=== PATIENT | male | born 1940 | race Caucasian/White ===

== ENCOUNTER 2018-11-30 19:15 | Outpatient (CLI) | payer MEDICARE | END 2018-11-30 19:16 | disposition short-term general hospital (02) | LOC: EMS 19:15 | PROVIDERS: ATTEND Surgery | DX: R46.4 Slowness and poor responsiveness (principal); R41.0 Disorientation, unspecified | CPT/HCPCS: A0425; A0427 ==

== ENCOUNTER 2020-05-28 22:10 | Outpatient (CLI) | payer MEDICARE | END 2020-05-28 22:11 | disposition critical access hospital (66) | LOC: EMS 22:10 | PROVIDERS: ATTEND Surgery | DX: M54.5 Low back pain (principal) | CPT/HCPCS: A0425; A0429 ==

== ENCOUNTER 2020-05-28 22:47 | Emergency (ER) | payer MEDICARE ==
[2020-05-28] MEDS ORDERED: HYDROmorphone 1 MG/ML CARPUJECT IM STA (23:07)
--- NOTE | 2020-05-28 23:52 | ED Physician Documentation ---
PD HPI BACK PAIN - Stated complaint Stated Complaint: GLF, BACK PAIN - Chief complaint Chief Complaint: Trauma Ch/Bk - History obtained from History obtained from: Patient, EMS - Additional information Additional information: Patient is brought to the emergency department by EMS after [place]. [place] to feel very tired. He states that this happens to him occasionally, but that usually, he is able to get rest at home and feels better in the morning. Patient states that he had to walk several blocks to his home and that when he did while walking, he took a fall. He is not sure if he tripped or slipped, though he does note it was raining and the ground was wet. Patient has chronic low back pain and states that after the fall, his pain was much worse and could not get up. Patiently in the rain for approximately 2 hours before being discovered and EMS was then called. The pat ient denies chest pain or shortness of breath. He states he did not hit his head or lose consciousness. No nausea, vomiting, or abdominal pain. Medics have noted only abrasion on patient's right knee and right hand. Patient is on an anticoagulant of some sort he states, but he is not sure what the name is. He lives at home with his . No other complaints at this time. Review of Systems Ten Systems: 10 systems reviewed and negative Constitutional: reports: Reviewed and negative Eyes: reports: Reviewed and negative Ears: reports: Reviewed and negative Nose: reports: Reviewed and negative Throat: reports: Reviewed and negative Cardiac: reports: Reviewed and negative Respiratory: reports: Reviewed and negative GI: reports: Reviewed and negative : reports: Reviewed and negative Skin: reports: Reviewed and negative Musculoskeletal: reports: Back pain. denies: Neck pain, Extremity pain Neurologic: reports: Reviewed and negative. denies: Headache, Head injury, LOC Psychiatric: reports: Reviewed and negative Endocrine: reports: Reviewed and negative Immunocompromised: reports: Reviewed and negative PD PAST MEDICAL HISTORY - Present Medications Home Medications: Ambulatory Orders Medication Instructions Recorded Confirmed Acetaminophen [Aphen] 325 mg PO PRN 05/28/20 Apixaban [Eliquis] 2.5 mg PO BID 05/28/20 05/28/20 Atorvastatin Calcium [Lipitor] 80 mg PO HS 05/28/20 05/28/20 Famotidine [Acid-Pep] 20 mg PO DAILY 05/28/20 05/28/20 Furosemide [Lasix] 20 mg PO DAILY 05/28/20 05/28/20 HYDROcod/ACETAM 5/325 [[place] 5/325] 1 - 2 ea PO Q6H PRN #15 tablet 05/28/20 Levetiracetam [Keppra Xr] 500 mg PO BID 05/28/20 05/28/20 Losartan [Cozaar] 50 mg PO DAILY 05/28/20 05/28/20 Metoprolol Succinate [Toprol Xl] 100 mg PO DAILY PM 05/28/20 05/28/20 Potassium Chloride 20 meq PO DAILY 05/28/20 05/28/20 amLODIPine [Norvasc] 10 mg PO DAILY 05/28/20 05/28/20 - Allergies Allergies/Adverse Reactions: Allergies Allergy/AdvReac Type Severity Reaction Status Date / Time No Known Drug Allergies Allergy Verified 05/28/20 23:19 PD ED PE NORMAL - Vitals Vital signs reviewed: Yes - General General: Alert and oriented X 3, No acute distress, Well developed/nourished - HEENT HEENT: Atraumatic, PERRL, EOMI, Moist mucous membranes - Neck Neck: Supple, no meningeal sign, No bony TTP - Cardiac Cardiac: RRR, No murmur, Strong equal pulses - Respiratory Respiratory: No respiratory distress, Clear bilaterally - Abdomen Abdomen: Soft, Non tender, Non distended - Back Back: Other (There is no specific tenderness over the patient's back, though he is very uncomfortable during the process of rolling him over to check his back. He indicates the lumbar region as being the general area of his pain when I palpate, though he denies tenderness.) - Derm Derm: Normal color, Warm and dry, No rash, Other (Small abrasion to the right hand dorsum and right knee.) - Extremities Extremities: No deformity, No edema, No calf tenderness / cord - Neuro Neuro: Alert and oriented X 3, narcotics agent 2-12 intact, No motor deficit, No sensory deficit, Normal speech - Psych Psych: Normal mood, Normal affect Results - Vitals Vitals: Vital Signs - 24 hr 05/28/20 05/29/20 22:50 00:28 Temperature 37.3 C 36.6 C Heart Rate 64 96 Respiratory 16 17 Rate Blood Pressure 158/87 H 149/94 H O2 Saturation 92 92 Oxygen O2 Source Room air - Rads (name of study) lumbar spine XR Radiology: Final report received, EMP read indepedently, See rad report (DDD, otherwise neg) PD MEDICAL DECISION MAKING - ED course Complexity details: reviewed results, re-evaluated patient, considered differential, d/w patient ED course: I discussed with the patient that I would like to start by x-raying his back to see if he has sustained any bony injury. I did discuss with him that I would like to also check blood work and EKG, regarding his episodes of weakness, including tonight's. However, the patient was adamant that he did not want anything else checked and that really, he only wanted pain medication and to warm up. I discussed with the patient again that we do not have any way of knowing if something more serious is happened to make him feel weak, but the patient states this happens to him from time to time and that he is not interested in having any further work-up done. He has adamantly declined anything except back x-ray. The patient was given IM Dilaudid and sent for x- ray series of the lumbar spine, which showed a little bit to do was otherwise unremarkable. Patient was found to be feeling quite a bit better after medication. Patient still adamant that he does not want further work-up. I discussed with him that if his weakness worsens, or certainly if he develops chest pain or shortness of breath, or if he develops fever chills or cough, he should return to the emergency department without delay. Patient's is come to get him. We discussed the usual indications for return. Departure - Departure Disposition: 01 Home, Self Care Clinical Impression: Lumbar back pain Condition: Stable Instructions: ED Low Back Pain Injury Prescriptions: HYDROcod/ACETAM 5/325 [[place] 5/325] 1 - 2 ea PO Q6H PRN #15 tablet PRN Reason: Pain Comments: Your x-rays look good. There is no evidence of a significant injury to the bony structures of your back. Most likely, you have strained your back during the fall. Generally, these sorts of injuries get better on their own and blow over in time. However, if you are still having symptoms after the next week, you should follow-up with your primary care physician to discuss further testing that may need to be done. Please take the pain medication prescribed, as needed. If you develop loss of bowel or bladder function, please return to the emergency department. You have declined further testing, including blood work, to further investigate your weakness. Please make an appointment to see your primary care physician soon as possible to discuss these ongoing episodes of weakness that you have had. Discharge Date/Time: 05/29/20 00:29
[2020-05-29 00:36] VITALS: BP 149/94
--- NOTE | 2020-05-29 08:20 | XRAY Report ---
PROCEDURE: Lumbar Spine 2 View INDICATIONS: fall/pain TECHNIQUE: 2 views of the lumbar spine were acquired. COMPARISON: None. FINDINGS: Bones: 5 [id number] vertebrae are present. There is normal bony alignment. No vertebral body compression fractures. No suspicious bony lesions. Multilevel endplate osteophyte formation and fac et hypertrophy. Soft tissues: Overlying bowel gas pattern is normal. No suspicious soft tissue calcifications. IMPRESSION: Multilevel degenerative disc and facet disease. No acute fracture. No osseous lesion. If symptoms and/or clinical suspicion for pathology continue, further assessment with repeat plain film s, or advanced imaging (e.g., CT, MRI, or bone scan) is recommended for further assessment. Reviewed by: lEizabeth Steiner MD on 05/29/2020 8:18 AM PST Approved by: Elizabeth Steiner MD on 05/29/2020 8:18 AM PST Station ID: [id number]
== END 2020-05-29 00:29 | disposition home or self-care (01) ==
LOC: EDUNIT# → ED 22:47
DX: M54.5 Low back pain (principal); S80.211A Abrasion, right knee, initial encounter; S60.511A Abrasion of right hand, initial encounter; W01.0XXA Fall on same level from slipping, tripping and stumbling without subsequent striking against object, initial encounter; Y93.01 Activity, walking, marching and hiking; Y92.480 Sidewalk as the place of occurrence of the external cause; R53.1 Weakness; Z79.01 Long term (current) use of anticoagulants
CPT/HCPCS: 72100; 96372; 99283; 99284; J1170

== ENCOUNTER 2022-06-03 07:52 | Outpatient (CLI) | payer MEDICARE | END 2022-06-03 07:53 | disposition left against medical advice (07) | LOC: EMS 07:52 | DX: R53.1 Weakness (principal); I10 Essential (primary) hypertension ==

== ENCOUNTER 2022-08-19 04:47 | Outpatient (CLI) | payer MEDICARE | END 2022-08-19 23:59 | disposition EMS.NT | LOC: EMS 04:47 | DX: Z03.89 Encounter for observation for other suspected diseases and conditions ruled out (principal) ==

== ENCOUNTER 2022-09-07 18:04 | Outpatient (CLI) | payer MEDICARE | END 2022-09-07 23:59 | disposition critical access hospital (66) | LOC: EMS 18:04 | DX: M54.50 Low back pain, unspecified (principal); W01.0XXA Fall on same level from slipping, tripping and stumbling without subsequent striking against object, initial encounter; Y92.007 Garden or yard of unspecified non-institutional (private) residence as the place of occurrence of the external cause | CPT/HCPCS: A0425; A0429 ==

== ENCOUNTER 2022-09-07 19:10 | Emergency (ER) | payer MEDICARE ==
[2022-09-07] MEDS ORDERED: HYDROmorphone 1 MG/ML CARPUJECT IVP STA ×2 (19:24→21:10)
--- NOTE | 2022-09-07 19:25 | ED Physician Documentation ---
PD HPI BACK PAIN - Stated complaint Stated Complaint: GLF, DEMENTIA, AFIB - Chief complaint Chief Complaint: Back Pain - History obtained from History obtained from: Patient - Additional information Additional information: 82-year-old gentleman who is on a DOAC presents after a fall. He is a poor historian so the mechanism and details of the fall are not completely clear. Patient states he does not know why he fell. He does not remember falling. Report from the paramedics was that he did not hit his head. Initially the patient states he was not injured and has no pain but then clearly has a lot of back pain when we move him. PD PAST MEDICAL HISTORY - Past Medical History Cardiovascular: Congestive heart failure, Hypertension, High cholesterol Respiratory: Sleep apnea Neuro: CVA GI: GERD, Other Musculoskeletal: Chronic back pain - Past Surgical History Past Surgical History: Yes General: Bowel surgery - Present Medications Home Medications: Ambulatory Orders Medication Instructions Recorded Confirmed Acetaminophen [Aphen] 325 mg PO PRN 05/28/20 Apixaban [Eliquis] 2.5 mg PO BID 05/28/20 05/28/20 Atorvastatin Calcium [Lipitor] 80 mg PO HS 05/28/20 05/28/20 Famotidine [Acid-Pep] 20 mg PO DAILY 05/28/20 05/28/20 Furosemide [Lasix] 20 mg PO DAILY 05/28/20 05/28/20 HYDROcod/ACETAM 5/325 [[place] 5/325] 1 - 2 ea PO Q6H PRN #15 tablet 05/28/20 Levetiracetam [Keppra Xr] 500 mg PO BID 05/28/20 05/28/20 Losartan [Cozaar] 50 mg PO DAILY 05/28/20 05/28/20 Metoprolol Succinate [Toprol Xl] 100 mg PO DAILY PM 05/28/20 05/28/20 Potassium Chloride 20 meq PO DAILY 05/28/20 05/28/20 amLODIPine [Norvasc] 10 mg PO DAILY 05/28/20 05/28/20 HYDROcod/ACETAM 5/325 [[place] 5/325] 1 - 2 tab PO Q6H PRN #15 tablet 09/07/22 - Allergies Allergies/Adverse Reactions: Allergies Allergy/AdvReac Type Severity Reaction Status Date / Time No Known Drug Allergies Allergy Verified 05/28/20 23:19 - Social History Does the pt smoke?: No Smoking Status: Former smoker Does the pt drink ETOH?: Yes Does the pt have substance abuse?: No PD ED PE NORMAL - Vitals Vital signs reviewed: Yes - General General: Other (He is alert and oriented to person and place but not time or events. He winces due to back pain when moved and appears uncomfortable although denies pain when not being moved.) - HEENT HEENT: PERRL, EOMI - Neck Neck: Supple, no meningeal sign, No bony TTP - Cardiac Cardiac: Other (Irregularly irregular) - Respiratory Respiratory: No respiratory distress, Clear bilaterally - Abdomen Abdomen: Normal bowel sounds, Soft, Non tender - Back Back: No CVA TTP, Other (Diffuse thoracic and lumbar spinal tenderness) - Derm Derm: Normal color, Warm and dry - Extremities Extremities: No deformity, No tenderness to palpate, Normal ROM s pain, No edema, No calf tenderness / cord - Neuro Neuro: No motor deficit, No sensory deficit, Normal speech Eye Opening: Spontaneous Motor: Obeys Commands Verbal: Confused (When asked him the date he states his birthday. He does not remember falling.) GCS Score: 14 Results - Vitals Vitals: Vital Signs - 24 hr 09/07/22 09/07/22 09/07/22 19:15 19:49 21:03 Temperature 36.4 C L 36.4 C L Heart Rate 82 79 83 Respiratory 16 18 18 Rate Blood Pressure 186/72 H 195/88 H 179/110 H O2 Saturation 95 91 L 93 If not protocol : Oxygen Flow, liters/minute 09/07/22 09/07/22 09/07/22 21:56 22:44 23:36 Temperature Heart Rate 75 69 60 Respiratory 11 L 12 12 Rate Blood Pressure 206/109 H 186/91 H 186/91 H O2 Saturation 90 L 95 98 If not protocol 2 : Oxygen Flow, liters/minute Oxygen O2 Source Nasal cannula - Labs Labs: Laboratory Tests 09/07/22 09/07/22 09/07/22 19:29 19:29 19:29 WBC 7.4 RBC 3.81 L Hgb 11.1 L Hct 37.3 L MCV 97.9 H MCH 29.1 MCHC 29.8 L RDW 15.9 H Plt Count 239 MPV 11.3 Neut # (Auto) 6.1 Lymph # (Auto) 0.5 L Dodge # (Auto) 0.4 Eos # (Auto) 0.3 Baso # (Auto) 0.1 Absolute Nucleated RBC 0.00 Nucleated RBC % 0.0 PT 15.0 H INR 1.4 H Sodium 144 Potassium 4.9 Chloride 109 Carbon Dioxide 29 Anion Gap 6.0 BUN 29 H Creatinine 1.5 H Estimated GFR (MDRD) 45 L Glucose 104 H Calcium 9.0 Total Bilirubin 0.6 AST 26 ALT 27 Alkaline Phosphatase 108 Total Protein 7.1 Albumin 3.9 Globulin 3.2 Albumin/Globulin Ratio 1.2 TSH Ethyl Alcohol < 5.0 09/07/22 19:29 WBC RBC Hgb Hct MCV MCH MCHC RDW Plt Count MPV Neut # (Auto) Lymph # (Auto) Dodge # (Auto) Eos # (Auto) Baso # (Auto) Absolute Nucleated RBC Nucleated RBC % PT INR Sodium Potassium Chloride Carbon Dioxide Anion Gap BUN Creatinine Estimated GFR (MDRD) Glucose Calcium Total Bilirubin AST ALT Alkaline Phosphatase Total Protein Albumin Globulin Albumin/Globulin Ratio TSH 2.28 Ethyl Alcohol - Rads (name of study) CT of the head showing evidence of old stroke, no acute trauma. Relevant Findings:: Final report received, EMP independent interpretation of test CT of the C-spine is negative for trauma. Relevant Findings:: Final report received, EMP independent interpretation of test PD Medical Decision Making - ED course ED course: 82yo w dementia with unlclear injuries after fall down stairs, poor hx d/t dementia, seems to have back discomfort. Thomas scan done to eval. CBC- mild anemia CMP- mild prerenal azotemita INR slight elev d/t DOAC EtOH neg Care to Dr Hoang at 10p change of shift pending CT reads. Departure - Departure Disposition: 01 Home, Self Care Clinical Impression: Adequate anticoagulation on anticoagulant therapy, Mass of thyroid region Dementia Qualifiers: Dementia type: unspecified type Dementia severity: unspecified severity Dementia behavioral or psychological symptom: unspecified whether behavioral, psychotic, or mood disturbance or anxiety Qualified Code(s): F03.90 - Unspecified dementia, unspecified severity, without behavioral disturbance, psychotic disturbance, mood disturbance, and anxiety Fall down stairs Qualifiers: Encounter type: initial encounter Qualified Code(s): W10.8XXA - Fall (on) (from) other stairs and steps, initial encounter Back pain Qualifiers: Back pain location: low back pain Chronicity: acute Back pain laterality: unspecified Sciatica presence: without sciatica Qualified Code(s): M54.50 - Low back pain, unspecified Condition: Stable Prescriptions: HYDROcod/ACETAM 5325 [[place] 5325] 1 - 2 tab PO Q6H PRN #15 tablet PRN Reason: Pain Comments: I sent a prescription for hydrocodone to the [facility] in [place] for you. Should be waiting tomorrow. He can take as little as half a tablet of time but as we discussed, it would be best if he can just take Tylenol per package instructions and avoid the narcotic. There were no fractures or obvious organ injuries noted on the CT scans. There was note of a calcified mass adjacent to the right lobe of the thyroid measuring 3.8 x 2.4 cm (about 1 x 1-1/2 inches). This would be concerning for a tumor/cancer. Suggestion is outpatient ultrasound to better evaluate it. Discussed this with your primary care. Call your doctor to arrange a follow-up appointment, make the next available appointment. In the interim, return anytime if worse or if new symptoms develop. I am prescribing a short course of narcotic pain medication for you. These are potentially dangerous and addictive medications that should be used carefully. These medications may constipate you. Take an xydb-cyk-qltabkm stool softener (docusate) twice daily with plenty of water while taking these medications. If you go 24 hours without a bowel movement, take [id number]-[id number] miralax, per package instructions. Do not drink or drive while taking these medications. If you received narcotic or sedating medications while in the emergency department, do not drive for 24 hours. Store this medication in a safe, secure place and out of reach of children. It is a violation of federal law to give or sell this medication to another person or to use in a manner other than prescribed. The ED will not refill narcotic prescriptions, including prescriptions lost or stolen. To dispose of unwanted medications: 1. [facility] [address] in [place] has a medication drop box. They accept prescription medications (in pill form) Thursday through Thursday 9:00 a.m. to 5:00 p.m. 2. The [facility] [employer] accepts prescription medications (in pill form only) for disposal year round. Call for more information. 3. Contact the [facility] for the next [facility] sponsored prescription drug collection event. , [phone], or [phone]; Note that many narcotic pain relievers also contain Tylenol/acetaminophen. Please ensure that your total dose of acetaminophen from all sources does not exceed 3 g (3000 mg) per day. Discharge Date/Time: 09/07/22 23:36
[2022-09-07] MEDS ORDERED: iohexoL-300 100 ML VIAL ONE (19:33)
[2022-09-07 19:42] LABS: BASOPHILS # (AUTO) 0.1 10^3/uL (0.0-0.1); BASOPHILS % (AUTO) 0.9 %; EOSINOPHILS # (AUTO) 0.3 10^3/uL (0.0-0.7); EOSINOPHILS % (AUTO) 3.6 %; HCT - HEMATOCRIT 37.3 % (42.0-52.0); HGB - HEMOGLOBIN 11.1 g/dL (14.0-18.0); LYMPHOCYTES # (AUTO) 0.5 10^3/uL (1.5-3.5); LYMPHOCYTES % (AUTO) 7.3 %; MEAN CORPUSCULAR HEMOGLOBIN 29.1 pg (27.0-31.0); MEAN CORPUSCULAR HGB CONC 29.8 g/dL (32.0-36.0); MEAN CORPUSCULAR VOLUME 97.9 fL (80.0-94.0); MEAN PLATELET VOLUME 11.3 fL (7.4-11.4); MONOCYTES # (AUTO) 0.4 10^3/uL (0.0-1.0); MONOCYTES % (AUTO) 5.9 %; NEUTROPHILS # (AUTO) 6.1 10^3/uL (1.5-6.6); NEUTROPHILS % (AUTO) 81.9 %; PLT - PLATELET COUNT 239 10^3/uL (130-450); RED BLOOD COUNT 3.81 10^6/uL (4.70-6.10); RED CELL DISTRIBUTION WIDTH 15.9 % (12.0-15.0); WHITE BLOOD COUNT 7.4 x10^3/uL (4.8-10.8)
[2022-09-07 19:51] LABS: INR 1.4 (0.8-1.2)
[2022-09-07 19:53] LABS: ALBUMIN 3.9 g/dL (3.2-5.5); ALBUMIN/GLOBULIN RATIO 1.2 (1.0-2.2); ALKALINE PHOSPHATASE 108 IU/L (42-121); ALT ALANINE AMINOTRANSFERASE 27 IU/L (10-60); AST ASPARTATE AMINOTRANSFERASE 26 IU/L (10-42); BILIRUBIN,TOTAL 0.6 mg/dL (0.2-1.0); BUN - BLOOD UREA NITROGEN 29 mg/dL (6-20); CARBON DIOXIDE - CO2 29 mmol/L (21-32); CHLORIDE 109 mmol/L (101-111); CREATININE 1.5 mg/dL (0.6-1.2); ETOH - ETHANOL < 5.0 mg/dL; GFR - MDRD 45 (>89); GLUCOSE 104 mg/dL (70-100); POTASSIUM 4.9 mmol/L (3.5-5.0); SODIUM 144 mmol/L (135-145); TOTAL PROTEIN 7.1 g/dL (6.7-8.2)
[2022-09-07] MEDS ORDERED: LOSARTAN 50 MG TABLET PO STA (21:09)
[2022-09-07] MEDS ORDERED: METOPROLOL SUCCINATE 50 MG TABLET PO STA (21:09)
[2022-09-07] MEDS ORDERED: KETOROLAC 15 MG/ML VIAL IVP STA (21:10)
--- NOTE | 2022-09-07 22:19 | CT Report ---
PROCEDURE: HEAD WO INDICATIONS: back inj, ams, fall TECHNIQUE: Noncontrast 4.5 mm thick angled axial sections acquired from the foramen magnum to the vertex. For r adiation dose reduction, the following was used: automated exposure control, adjustment of mA and/or kV according to patient size. COMPARISON: None. FINDINGS: Image quality: Excellent. CSF spaces: There is moderate overall cerebral volume loss with prominence of the ventricles and sul ci. Basal cisterns are patent. Brain: No intracranial hemorrhage, mass, or mass effect. A large region of encephalomalacia is demon strated in the left frontal lobe consistent with sequelae of a prior infarct. There are subcortical a nd periventricular white matter hypodensities consistent with moderate chronic small vessel ischemic changes. Skull and face: Calvarium and visualized facial bones are intact, without suspicious lesions. Sinuses: Visualized sinuses and mastoids are clear. IMPRESSION: 1. No acute intracranial abnormality. 2. 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 3. Moderate cerebral volume loss and chronic white matter small vessel ischemic changes. Reviewed by: Andrea Holly MD on 09/07/2022 10:17 PM PDT Approved by: Andrea Holly MD on 09/07/2022 10:17 PM PDT Station ID: [id number]
--- NOTE | 2022-09-07 22:22 | CT Report ---
PROCEDURE: CERVICAL SPINE WO INDICATIONS: back inj, ams, fall TECHNIQUE: Noncontrast 3 mm thick sections acquired from the skull base to the T4 level. Sagittal and coronal r eformats were then constructed. For radiation dose reduction, the following was used: automated exp osure control, adjustment of mA and/or kV according to patient size. COMPARISON: None. FINDINGS: Image quality: Excellent. Bones: No fractures or subluxation. There is straightening of the cervical lordosis. Multilevel dege nerative disc disease and facet arthropathy are present. Visualized superior ribs are intact. Soft tissues: Prevertebral soft tissues are normal in thickness. No paravertebral hematomas. No ap ical pneumothoraces. There is a partially calcified mass contiguous with the inferior right thyroid lobe extending into the mediastinum, measuring up to approximately 4.3 cm in craniocaudal dimension. IMPRESSION: 1. No acute fracture or subluxation. Reviewed by: Andrea Holly MD on 09/07/2022 10:20 PM PDT Approved by: Andrea Holly MD on 09/07/2022 10:20 PM PDT Station ID: [id number]
--- NOTE | 2022-09-07 22:29 | CT Report ---
PROCEDURE: CHEST W INDICATIONS: back inj, ams, fall CONTRAST: 100 ML OMNI 300 TECHNIQUE: After the administration of intravenous contrast, 1 mm axial images were acquired from the pulmonary apices through the posterior costophrenic angles. Axial 5 mm soft tissue kernel reconstructions were performed as well as 8 mm axial MIP and coronal and sagittal 5 mm reformations. For radiation dose reduction, the following was used: automated exposure control, adjustment of mA and/or kV according to patient size. COMPARISON: Concurrent CT study of the abdomen and pelvis. FINDINGS: Image quality: Diagnostic. CHEST: Lower Neck: No lymphadenopathy by size criteria. Thyroid: There is a partially calcified enhancing mass contiguous with the inferior right thyroid lob e extending into the mediastinum. This measures up to 3.8 x 2.4 cm in transverse dimension by 4.0 cm in craniocaudal dimension. Axillae: No lymphadenopathy by size criteria. Chest Wall: Unremarkable. Bones: No acute fractures identified. Lungs and Airways: No pulmonary contusions or lacerations. No acute consolidation. There is mild d ependent and compressive atelectasis bilaterally. There is mild interlobular septal thickening. A 0.4 cm right lower lobe pulmonary nodules demonstrated on series 3 image 233 extending to the major fiss ure. Scattered pulmonary cysts are noted bilaterally. The trachea and central airways are patent. Pleura: No pneumothorax.There are small bilateral pleural effusions, right greater than left. Heart: Heart size is normal.There is a small pericardial effusion. Thoracic Vessels: The aorta and pulmonary arteries are normal in size. Mediastinum and Sasha: No lymphadenopathy by size criteria. No definite mediastinal hematomas. Esophagus: No wall thickening. No hiatal hernia. Upper Abdomen: Visualized upper abdomen demonstrates no definite acute traumatic abnormality. IMPRESSION: 1. Small bilateral pleural effusions, right greater than left. 2. Small pericardial effusion. 3. Partially calcified mediastinal mass contiguous with the right thyroid lobe is nonspecific but shelly picious for a thyroid neoplasm. Recommend follow-up nonemergent ultrasound if clinically indicated. 4. Small indeterminate right lower lobe 0.4 cm pulmonary nodule. Reviewed by: Andrea Rodriguez MD on 09/07/2022 10:27 PM PDT Approved by: Andrea Rodriguez MD on 09/07/2022 10:27 PM PDT Station ID: [id number]
--- NOTE | 2022-09-07 22:41 | CT Report ---
PROCEDURE: THORACIC SPINE WO INDICATIONS: back inj, ams, fall TECHNIQUE: Noncontrast 3 mm thick sections acquired through the region of interest in the thoracic spine. Sagit luz marina and coronal reformats were then constructed. For radiation dose reduction, the following was used : automated exposure control, adjustment of mA and/or kV according to patient size. COMPARISON: Concurrent CT of the thorax. FINDINGS: Image quality: Excellent. Bones: There is normal overall bony alignment. No acute vertebral body compression fractures. No o ther definite acute fracture of the visualized osseous structures. There is mild multilevel degenerat ben disc disease throughout the thoracic spine. No suspicious sclerotic or lytic bony lesions. Centr al spinal canal is of normal overall caliber. Soft tissues: No paravertebral masses or hematomas. There are small bilateral pleural effusions, ri ght greater than left. Dependent atelectasis is demonstrated bilaterally. Interlobular septal thicken ing is noted suggestive of pulmonary edema. Heart size is enlarged. There is a small pericardial effu edgar. IMPRESSION: 1. No fracture or subluxation in the thoracic spine. 2. Small bilateral pleural effusions and small pericardial effusion. Reviewed by: Andrea Holly MD on 09/07/2022 10:40 PM PDT Approved by: Andrea Holly MD on 09/07/2022 10:40 PM PDT Station ID: [id number]
--- NOTE | 2022-09-07 22:44 | CT Report ---
PROCEDURE: ABDOMEN/PELVIS W INDICATIONS: back inj, ams, fall CONTRAST: 100 ML OMNI 300 TECHNIQUE: After the administration of intravenous contrast, 5 mm thick sections acquired from the diaphragms to the symphysis. 5 mm thick coronal and sagittal reformats were acquired. For radiation dose reducti on, the following was used: automated exposure control, adjustment of mA and/or kV according to esteban ent size. COMPARISON: Concurrent CT of the thorax FINDINGS: Image quality: There is beam hardening artifact limiting evaluation. Lung bases and heart: There are small bilateral pleural effusions with associated compressive atelect asis. Heart size is enlarged. There is a small pericardial effusion. ABDOMEN: Liver: No hepatic lacerations or perihepatic fluid collections. Gallbladder: Within normal limits without calcified gallstones. Biliary ducts: No biliary ductal dilatation. Pancreas: Unremarkable. Spleen: Normal in size. No splenic lacerations or perisplenic fluid collections. Adrenal Glands: No adrenal nodules. Kidneys and Ureters: No hydronephrosis.The kidneys are atrophic in size bilaterally. Stomach and Bowel: Stomach, small bowel loops, and colon are normal in caliber and wall thickness. T he appendix is normal. There is colonic diverticulosis. Peritoneum: No abnormal intraperitoneal fluid. No free air. Ventral Wall: No hernia. Abdominal Nodes: No retroperitoneal or mesenteric adenopathy by size criteria. Vessels: Aorta and inferior vena cava are normal in size. PELVIS: Pelvic Organs:There is moderate enlargement of the prostate. Bladder: Unremarkable. Pelvic Nodes: No enlarged lymph nodes. Miscellaneous: No inguinal hernias are seen. Bones: No acute fractures identified. Visualized osseous structures demonstrate no suspicious focal lesions. IMPRESSION: 1. No definite acute traumatic abnormality in the abdomen or pelvis. Reviewed by: Andrea Holly MD on 09/07/2022 10:42 PM PDT Approved by: Andrea Holly MD on 09/07/2022 10:42 PM PDT Station ID: [id number]
[2022-09-07 22:46] VITALS: BP 186/91
--- NOTE | 2022-09-07 22:56 | CT Report ---
PROCEDURE: LUMBAR SPINE WO INDICATIONS: back inj, ams, fall TECHNIQUE: Noncontrast 3 mm thick sections acquired from the T12 level to the sacrum. Sagittal and coronal refo rmats were constructed. For radiation dose reduction, the following was used: automated exposure co ntrol, adjustment of mA and/or kV according to patient size. COMPARISON: Concurrent CT of the abdomen and pelvis. FINDINGS: Image quality: Excellent. Bones: There is normal bony alignment. No acute vertebral body compression fractures. No suspiciou s lytic or blastic bony lesions. No pars defects. There is mild multilevel degenerative disc diseas e throughout the lumbar spine. Mild facet arthropathy also demonstrated in the lower lumbar spine. Li mited evaluation on CT demonstrates no definite high-grade spinal canal narrowing. There is mild mult ilevel spinal canal narrowing in the lower lumbar spine. There is also moderate multilevel neuroforam inal narrowing in the lower lumbar spine. Soft tissues: No retroperitoneal masses or hematomas. Visualized aorta is normal in caliber. IMPRESSION: 1. No fracture or subluxation. 2. Mild multilevel degenerative disc disease as well as mild facet arthropathy in the lower lumbar sp ine. No high-grade spinal canal narrowing. 3. Moderate multilevel neuroforaminal narrowing in the lower lumbar spine. Reviewed by: Andrea Holly MD on 09/07/2022 10:54 PM PDT Approved by: Andrea Holly MD on 09/07/2022 10:54 PM PDT Station ID: [id number]
--- NOTE | 2022-09-07 23:22 | ED Physician Documentation ---
ED Addendum - Addendum Addendum: 09/07/22 23:21 I was asked to follow-up on the CT reports for the patient to ensure no subsequent findings from the reports. There were no obvious organ injuries nor fractures noted on the multiple scans. Note was made of some degenerative disc disease in the lower back. There was also note of a calcified mass 3.8 x 2.4 cm adjacent to the right lobe of the thyroid concerning for thyroid cancer. Recommendation for outpatient ultrasound if clinically indicated. I told this to his and 2 daughters in the room. They were not aware of his having any thyroid diagnoses or problems. They will follow-up with their primary care provider who is at the [facility]. I gave them a copy of the chest CT report which included this finding.
[2022-09-07] MEDS ORDERED: iohexoL-300 100 ML VIAL IVP ONE (23:52)
== END 2022-09-07 23:36 | disposition home or self-care (01) ==
LOC: EDUNIT# → ED 19:10
DX: M51.36 Other intervertebral disc degeneration, lumbar region (principal); F03.90 Unspecified dementia, unspecified severity, without behavioral disturbance, psychotic disturbance, mood disturbance, and anxiety; E07.89 Other specified disorders of thyroid; Z79.01 Long term (current) use of anticoagulants; Z87.891 Personal history of nicotine dependence
CPT/HCPCS: 36415; 70450; 71260; 72125; 72128; 72131; 74177; 80053; 84443; 85025; 85610; 96374; 96376; 99284; A9270; G0480; J1170; Q9967; 80320

== ENCOUNTER 2022-09-22 23:53 | Outpatient (CLI) | payer MEDICARE | END 2022-09-22 23:59 | disposition EMS.NT | LOC: EMS 23:53 | DX: Z03.89 Encounter for observation for other suspected diseases and conditions ruled out (principal) ==

== ENCOUNTER 2022-10-04 20:14 | Outpatient (CLI) | payer MEDICARE | END 2022-10-04 23:59 | disposition EMS.NT | LOC: EMS 20:14 | DX: Z03.89 Encounter for observation for other suspected diseases and conditions ruled out (principal) ==

== ENCOUNTER 2023-03-20 19:33 | Outpatient (CLI) | payer MEDICARE | END 2023-03-20 19:34 | disposition EMS.NT | LOC: EMS 19:33 | DX: Z03.89 Encounter for observation for other suspected diseases and conditions ruled out (principal) ==

== ENCOUNTER 2023-03-21 20:48 | Outpatient (CLI) | payer MEDICARE | END 2023-03-21 20:49 | disposition EMS.NT | LOC: EMS 20:48 | DX: S61.412A Laceration without foreign body of left hand, initial encounter (principal); S61.511A Laceration without foreign body of right wrist, initial encounter; W01.0XXA Fall on same level from slipping, tripping and stumbling without subsequent striking against object, initial encounter; Y92.008 Other place in unspecified non-institutional (private) residence as the place of occurrence of the external cause ==